=== PATIENT | female | born 1930 | race Caucasian/White ===

== ENCOUNTER → 2018-12-04 | Outpatient (CLI) | payer MEDICARE, OTHER ==
--- NOTE | 2018-12-04 17:10 | KCIC ---
LUMBAR SPINE WO CONTRAST History: Degenerative disease. Low back pain chronic. Right lower extremity pain. Technique: Multiplanar, multi sequential MR imaging was performed of the lumbar spine. Comparison: None Findings: Mild retrolisthesis T12 on L1 and L1-L2. Otherwise, normal alignment. Normal vertebral body height. No fracture. No pathologic marrow replacing process. Conus terminates at the normal location. No evidence of nerve root clumping. T12-L1: Mild retrolisthesis. Posterior disc bulge. Facet arthropathy. No canal narrowing. Mild bilateral neural foraminal narrowing. L1-L2: Mild retrolisthesis. Broad-based posterior disc bulge. Facet arthropathy. No canal narrowing. Mild bilateral neural foraminal narrowing. L2-L3: Small posterior disc bulge. Moderate facet arthropathy. No canal narrowing. Mild bilateral neural foraminal narrowing. L3-L4: Broad-based posterior disc bulge. Moderate facet arthropathy. Ligament flavum thickening. Mild canal narrowing. Bilateral subarticular recess narrowing. Mild bilateral neural foraminal narrowing. L4-L5: Base posterior disc bulge. Moderate facet arthropathy. Severe right subarticular recess narrowing with abutment of the descending right L5 nerve root. Mild canal narrowing. Mild to moderate right and mild left neural foraminal narrowing. L5-S1: Broad-based posterior disc bulge. Moderate facet arthropathy. Left subarticular recess narrowing. No canal narrowing. Moderate bilateral neural foraminal narrowing. Impression: 1. Moderate multilevel lumbar spondylosis most prominent L3-L4 and L4-L5 with mild canal narrowing. 2. L4-L5 severe right subarticular recess narrowing with abutment of the descending right L5 nerve root. Correlate for radiculopathy. 3. Multilevel neural foraminal narrowing most prominent L5-S1. Electronically signed by: Ramesh Guerra DO (12/04/2018 5:07 PM) [id number]
== END | disposition home or self-care (01) ==
LOC: KCIC MRI 14:19
PROVIDERS: ATTEND Orthopaedic Surgery Sports Medicine
DX: M47.26 Other spondylosis with radiculopathy, lumbar region (principal); M48.07 Spinal stenosis, lumbosacral region; M12.88 Other specific arthropathies, not elsewhere classified, other specified site
CPT/HCPCS: 72148

== ENCOUNTER → 2020-09-16 | Outpatient (CLI) | payer MEDICARE, OTHER ==
--- NOTE | 2020-09-16 12:35 | KCIC ---
CT Head without contrast 09/16/2020 10:53 AM Indication: MEMORY LOSS Comparison: None Findings: No intracranial hemorrhage is seen. No evidence of acute territorial infarct is seen. Note that CT is limited in sensitivity for acute ischemia. Age-related atrophic changes are noted. Ther e is mild patchy periventricular and deep white matter hypoattenuation which is nonspecific, but most commonly relates to chronic small vessel disease. No abnormal extra axial fluid collection is ident ified. No mass effect or midline shift is seen. No acute osseous abnormalities are seen. Impression: 1. No acute intracranial process identified 2. Age-related atrophy, mild changes of chronic small vessel disease as described CT DOSING PQRS STATEMENT: One or more of the following individualized dose reduction techniques were utilized for this examinat ion: 1. Automated exposure control 2. Adjustment of the mA and/or kV according to patient size 3. Use of iterative reconstruction technique Electronically signed by: Ben Michelle MD (09/16/2020 12:32 PM) [id number]
== END ==
LOC: KCIC CT 10:50
PROVIDERS: ATTEND Family Medicine
DX: R41.3 Other amnesia (principal); G31.89 Other specified degenerative diseases of nervous system
CPT/HCPCS: 70450